=== PATIENT | female | born 2000 | race Caucasian/White ===

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

== ENCOUNTER → 2021-01-28 | Outpatient (REF) | LOC: LAB 10:01 | DX: Z20.822 Contact with and (suspected) exposure to COVID-19 (principal) ==

== ENCOUNTER 2021-12-11 05:17 | Emergency (ER) | payer BC ==
[~2021-12-11] VITALS: Ht 172.7 cm; Wt 71.8 kg
[2021-12-11 05:22] VITALS: BP 117/74
[2021-12-11] MEDS ORDERED: ESTARYLLA 35 MC1 TAB PO (05:31)
[2021-12-11] MEDS ORDERED: TERBINAFINE250 MG PO (05:31)
[2021-12-11] MEDS ORDERED: PRILOSEC 20MG20 MG PO (06:15)
== END 2021-12-11 06:23 | disposition home or self-care (01) ==
LOC: ED 05:17
DX: K21.9 Gastro-esophageal reflux disease without esophagitis (principal)